=== PATIENT | male | born 1960 | race Caucasian/White ===

== ENCOUNTER 2018-04-23 01:48 | Inpatient (IN) | payer OTHER ==
[~2018-04-23] VITALS: Ht 167.6 cm; Wt 93.2 kg
--- NOTE | 2018-04-23 12:58 | Patient Discharge Instructions ---
Discharge Instructions General Discharge Information You were seen/treated for: Rectal Cancer You had these procedures: Robotic/Laparoscopic Low Anterior Resection with Ileostomy Creation Watch for these problems: Bleeding, signs of infection including fever >101, redness, swelling or unusual drainage from incisions, increased pain, nausea, vomiting, excessive ostomy output, no ostomy output, or any other problems, questions or concerns. Do not soak the wound: Yes Daily wet to dry dressings: No No bath, but you may shower: Yes Other wound care: Ostomy care: Measure and record output daily. If >1L/day call MD. If no output call MD. Diet Continue normal diet: No Recommended Diet: Low Residue Additional DIET Information: Avoid high fiber foods (ruffage) see diet handout for additional recommendations Activity Full Activity/No Limits: No Activity Self Limited: Yes Pounds, do NOT lift more than: 10 ([id number]) Activity Limited to: Weight bear as tolerated Acute Coronary Syndrome Inclusion Criteria At DC or during hospital stay patient has or had the following: ACS DIAGNOSIS No Discharge Core Measures Meds if any: Prescribed or Continued at Discharge Meds if any: NOT Prescribed or Continued at Discharge Congestive Heart Failure Inclusion Criteria At DC or during hospital stay patient has or had the following: CHF DIAGNOSIS No Discharge Core Measures Meds if any: Prescribed or Continued at Discharge Meds if any: NOT Prescribed or Continued at Discharge Cerebrovascular accident Inclusion Criteria At DC or during hospital stay patient has or had the following: CVA/TIA Diagnosis No Discharge Core Measures Meds if any: Prescribed or Continued at Discharge Meds if any: NOT Prescribed or Continued at Discharge Venous thromboembolism Inclusion Criteria VTE Diagnosis No VTE Type NONE VTE Confirmed by (Test) NONE Discharge Core Measures - Per Current guidelines, there needs to be overlap - treatment for the first 5 days of Warfarin therapy. - If discharged on Warfarin prior to 5 days of - overlap therapy, the patient will need to be - assessed for post discharge needs including - *Post discharge parental anticoagulation - *Warfarin and/or parental anticoagulation education - *Follow up date to check INR post discharge At least 5 days overlap therapy as Inpatient No Meds if any: Prescribed or Continued at Discharge Note: Overlap Therapy is Warfarin and Anticoagulant Meds if any: NOT Prescribed or Continued at Discharge
--- NOTE | 2018-04-23 13:01 | Admission Core Measures ---
Acute Coronary Syndrome (CM) ACS Core Measures Acute Coronary Syndrome Diagnosis No Congestive Heart Failure (NEW) CHF Core Measures Congestive Heart Failure Diagnosis No Cerebrovascular Accident CVA Core Measures CVA/TIA Diagnosis No Venous Thromboembolism VTE Core Tyler (View Protocol) VTE Risk Factors Surgery No Mechanical VTE Prophylaxis d/t N/A MechProphylax Ordered No VTE Pharm Prophylaxis d/t NA PharmProphylax ordered Problem List As ranked by this Provider includes Assessment & Plan 1. Rectal cancer metastasized to bone 2. S/P colectomy 3. S/P ileostomy HOME MEDS Home Med List No Known Home Medications
--- NOTE | 2018-04-23 13:11 | Surgical Discharge Summary ---
Visit Information Visit Dates Admission Date: 04/23/18 Discharge Date: 05/06/18 History of Present Illness Chief Complaint: Rectal cancer Medical History Respiratory: Lung Cancer Surgical History Pertinent Surgical History: S/P Left Lobectomy Review of Systems: as per [facility] Hospital Course Course Attending Physician: Nam Crooks Jr., DO Primary Care Physician: Bladimir MARTINEZ,Xuan Lopez Hospital Course: This is a 57 yo male who presented electively for low anterior resection and ileostomy creation. Patient underwent the aforementioned procedure without complication. He was on an ERAS protocol during his hospital stay. He had a ruiz catheter placed in the OR which remained in place until POD #2 at which point he underwent a voiding trial without difficulty. Postoperative course was complicated by postop ileus, for which he had a PICC line placed for TPN, which was weaned as diet was advanced. PICC line was removed prior to discharge. He received ostomy care and teaching during his stay. By time of discharge he was ambulating, voiding, tolerating a low residue diet and pain was well controlled with oral analgesia. Plan is for the patient to follow up with Dr. Crooks in 1-2 weeks following discharge from the hospital. For full details of his hospital course, operative report and diagnostic studies please refer to his electronic chart. Complications: Postop ileus, resolved Allergies: Coded Allergies: No Known Allergies (04/21/18) Significant Procedures: Robotic/Laparoscopic Low Anterior Resection and Ileostomy Creation Disposition Summary Disposition Principal Diagnosis: Rectal Cancer Additional Diagnosis: Postop ileus, resolved Discharge Disposition: home health services Discharge Instructions General Discharge Information Code Status: Full Code Patient's Diet: Low residue Patient's Activity: Increase as tolerated Follow-Up Instructions/Appts: With Dr. Crooks in 1-2 weeks Medications at Discharge Discharge Medications: Start taking the following new medications: Oxycodone HCl/Acetaminophen (Percocet 5-325 MG Tablet) 5 MG-325 MG TABLET 1-2 Tablet ORAL EVERY 4-6 HOURS NEEDED as needed for PAIN Qty = 20 No Refills Loperamide HCl (Imodium A-D) 2 MG TABLET 2 Milligram ORAL THREE TIMES DAILY as needed for DIARRHEA/HIGH OSTOMY OUTPUT Qty = 30 No Refills Copies To: Nam Crooks Jr., DO; Bladimir MARTINEZ,Xuan Lopez
--- NOTE | 2018-04-23 13:17 | Operative Report ---
Operative/Inv Procedure Report Surgery Date: 04/23/18 Name of Procedure: 1. Robotic low anterior resection with low colorectal anastomosis 2. Laparoscopic diverting loop ileostomy 3. Rigid sigmoidoscopy Pre-Operative Diagnosis: Rectal cancer Post-Operative Diagnosis: Rectal cancer Estimated Blood Loss: less than 50ml Surgeon/Tape Recorder Repairer: Nam Crooks Jr., DO surgical assistant certified Sherri SOLO Second server service assistant Mariana SOLO Anesthesia: general endotracheal tube, block Monitors: Per routine IV Fluids: Refer to anesthesia record Implants: None Urine Output: Refer to anesthesia record Drains: None Specimens: 1 . Rectosigmoid with tumor and tattoo 2. Stapler donor as true distal margin Complications: None Condition: Good Operative Indication: This is a 57-year-old gentleman who was diagnosed with synchronous primary lung cancer and primary rectal cancer. His rectal cancer was clinically staged with MRI as T3N positive/clinical stage III his lung cancer was addressed first and patient had thoracotomy with partial resection. Following this patient had neoadjuvant chemoradiation for his rectal cancer. He has now completely recovered from both his previous surgery and his chemotherapy and presented today for resection of his rectal cancer. Operative/Procedure Note Note: On the day before the operation the patient did a bowel prep at home including oral laxatives and oral antibiotic. Per our ERAS protocol he drinks 12 ounces of apple juice 1 hour before coming to the hospital. In the holding area he received the typical ERAS medications. He was taken to the operating room. He was placed in the supine position on the operating room table. He underwent induction of general anesthesia and placement of Tate catheter. Bilateral tap blocks were performed by the anesthesia department. He received IV antibiotics in keeping with skip protocol. He was converted to lithotomy position in Stanford stirrups with both arms tucked. The abdomen was prepped and draped in the usual fashion. Gain access to the abdominal cavity using a Veress needle technique. The Veress needle was placed in the midclavicular line subcostal on the left. The abdomen was insufflated to 50 mmHg. The ports were then placed in usual fashion. Laparoscopic explanation of the abdominal cavity was performed. The liver appeared normal. A tattoo was visible staining the peritoneal reflection on the floor of the perineal cavity. The patient was placed in Trendelenburg right side down. Patient had what appeared to be previous diverticulitis with abnormal adhesions between the sigmoid colon and the left lower quadrant. These adhesions were taken down first partly with sharp dissection partly with electrocautery. The rectosigmoid was then grasped and elevated towards the anterior abdominal wall I incised the peritoneum at the sacral promontory and entered the posterior avascular space of the rectum. I developed the space in the medial to lateral fashion until I could see the iliac vessels the left ureter and the left gonadal vessels. Next I skeletonized the inferior mesenteric vascular pedicle. The pedicle was then divided in high ligation fashion using the robotic 45 mm white load vascular stapler. The vascular pedicle was completely hemostatic. The vessels were divided just distal to the takeoff of the left colic artery. At this point I took down the white line of Toldt and the mesocolon from Gerota's fascia. At this point my attention was completely focused on the pelvic dissection. I developed the posterior avascular space of the rectum all the way down to the levators. The muscle of the levator was clearly visible. I took the lateral stalks of the rectum first on the right side than on the left side all the way down to the levator. I then focused on the anterior dissect. The tattoo was visible in the anterior rectal wall. I followed park pino until I was below the prostate anteriorly and the low the tattoo on the rectal wall. Once I was well be on the tattoo the rectum was transected. The rectum was transected in an anterior posterior fashion with robotic green 45 mm stapler. 3 staplings in total were required to complete the transection. The transected rectum was then grasped with a locking grasper. The pneumoperitoneum was let down. A 4 cm Pfannenstiel incision was made 2 fingerbreadths cephalad to the pubic symphysis. A wound protector was placed through this incision. The specimen was easily extracted through this incision. I chose my proximal site of transection on the bowel. There was evidence of diverticulitis in the mid sigmoid colon. So the transection took place about the level of the proximal transverse colon. The mesentery was ligated and divided with 2-0 Vicryl ties. The bowel wall itself was divided sharply with scalpel. The specimen was removed and placed on the back table. I chose a 28 EEA stapler for the anastomosis. A handsewn pursestring was performed with 2-0 Prolene suture. The head of the end was placed into the lumen of the bowel. The pursestring was tied snugly around the PEG of the anvil and the bowel was reduced back into the abdominal cavity. At this point I broke scrub and opened the specimen on the back table. I had excellent distal margin on the tumor. The tumor appeared to have good response to radiation and with a small ulcerated area. I scrubbed back into the field. Was placed on the wound protector. Pneumoperitoneum was re-established. The EEA sizers were passed transanally and then the EEA stapler was passed. The spike was advanced in the emergency room right mid ELBA staple line right through the staple line. The 2 ends of the stapler were laparoscopically mated. The staple was completely closed and allowed to settle for 30 seconds. The staple was armed, fired, opened and retrieved. 2 excellent donuts were present on the stapling device. The rectal donut was sent as true distal margin. The pelvis was filled with sterile saline. Rigid sigmoidoscopy was performed the anastomosis was at about 5 cm. The anastomosis was widely patent and appeared intact. There was no bubbling at the anastomotic staple line. Next an additional 5 mm port was placed in the left lower quadrant. Laparoscopically the I identified the cecum and ran the terminal ileum for about 30 cm. This is the site I chose for the loop ileostomy. A small mesenteric window was made here and a umbilical tape was placed through this window. The umbilical tape was grasped through the #3 port which was just below and to the right of the umbilicus. This was to become ileostomy site. The pneumoperitoneum was once again let down. A yering[place] of skin and soft tissue was excised around the #3 port. The fascia was exposed and divided in a cruciate fashion. The rectus muscle was then exposed was bluntly divided in the midline and then the posterior fascia was also divided in a cruciate fashion. I was able to pull the loop of ileum up through the fascial defect. Next all the ports were removed. The Pfannenstiel incision was closed first. The peritoneum was closed with a running 2-0 Vicryl suture. The fascia was closed with a running 0 PDS suture. The subcu was copiously irrigated and the skin was closed with skin felicia. All of the laparoscopic ports were closed with subcuticular 4-0 Monocryl. Skin glue then applied to all the small incision. Next we prepared to mature the stoma. The umbilical tape was exchanged for a red rubber catheter. A Ashlie-type ileostomy was then created with 3-0 Vicryl in an interrupted fashion. Red rubber catheter was then fashioned into a stoma bridge and tails were tied together with heavy nylon suture. At this point the abdomen was cleansed and dried. A small island dressing was placed over the Pfannenstiel incision. A stoma collection device was placed over the ileostomy. The patient was converted back to supine. He was extubated in the operating room and tolerated the procedure well. He was taken to the recovery area in good condition. At the end of this case all needle sponges and instruments were accounted for. Findings: Good clinical response to radiation Excellent distal margin on tumor Anastomosis appears airtight Discharge Disposition: Same Day Admissions CC: Uzair MARTINEZ,Carlos
--- NOTE | 2018-04-23 14:47 | PN- General Surgery ---
Subjective Subjective: Pt. sates he is comfortable, has no complaints. Objective Vital Signs and I&Os Alert, oriented , awake Vital signs stable. Lungs are clear Heart regular, HR in 70's. Abdomen is softly mildly distended, dressing over incision is dry. Left sided ileostomy is pink, viable with scant amounts of serosang. drainage. Tate in place with clear yellow urine Assessment/Plan Assessment/Plan 57 y o with hx of retal Ca who underwent robotic assisted LAR POD#0 on ERAS protocol. Hemodynamically stable Progressing as expected Pain well controlled Abdominal exam stable Core Measures Venous Thromboembolism VTE Risk Factors Surgery No Mechanical VTE Prophylaxis d/t N/A MechProphylax Ordered No VTE Pharm Prophylaxis d/t NA PharmProphylax ordered
[2018-04-23 15:00] VITALS: BP 118/70
[2018-04-23 22:23] VITALS: BP 132/70
[2018-04-24 06:42] VITALS: BP 118/70
--- NOTE | 2018-04-24 07:20 | PN- Student ---
See Addendum Eugenie Suh 04/24/18 0711: Subjective Subjective: Pt states he is feeling well after surgery. He has some pain and discomfort in his lower abdomen that is a 4/10. He was up and walking last night and is eager to do so again. He has not passed gas or had a bowel movement yet. He has a good appetite. He denies any nausea, vomiting, CP, SOB, difficulty breathing, headache or dizziness. Objective Objective: Vitals: See EMR General: Middle aged male, lying in bed comfortably, ruiz in place with good urine output, NAD. Cardio: S1 and S2. No murmurs, rubs, gallops. Regular rate and rhythm. Pulmonary. Adequate breath sounds appreciated with no wheezes, rhonchi or rales. Adomen: Dressing in suprapubic region is clean, dry and intact. Ileostomy bag is in place with brown contents noted without any evidence of blood. Laproscopic incisions are intact and clean. Abdomen is soft and normoactive bowel sounds are heard. No rebound tenderness or guarding. Slightly tender to palpation. Extremities: Calves are soft and non-tender bilaterally. 5/5 dorsi and plantar flexion. Gross sensation intact and equal bilaterally in the feet. Results Results: Microbiology 04/23 0801 URINE ROUT: Urine Culture - RECD Assessment/Plan Assessment: A: 57 year old male POD#1 s/p LAR with loop ileostomy for resection of primary rectal cancer. Pt tolerated the procedure well and post-operative pain is well controlled. Plan: P: Continue to monitor and tx pain. ERAS protocol continued. Enocurage amulation with PT. Continue 1L nasal canula. Continue with ALPs for DVT prophylaxis and Heparin subq. Continue home medications. IVF running. Continue to monitor urine output. Ruiz to be removed on POD#2. Will discuss with surgical PAs and attendin. Jai Odell 04/24/18 6920: Assessment/Plan Plan: Seen and eval with PA-S. Agree with above. Tolerating clears w/ n/v, belched twice, reports gas sensation and bilious drainage from his ileostomy, leaked twiced overnight. Ambulated oob last night and using IS. On evam, afebrile, vss, mildly distended, ileostomy pink and viable with bilious drainage, bs present, ttp incisionally, lungs clear, alps in place, no edema/calf pain. POD 1 s/p LAR w/ diverting ileostomy, recovering well. Cont eras, d/c IVF advance to fulls, cont entereg, wean O2, encourage ambulation/is, d/c ruiz tomorrow. Wound and nutrition c/s. D/w Dr. Crooks
--- NOTE | 2018-04-24 07:54 | PN- General Surgery ---
Surgical Brief Attending Note Brief Attending Note: Patient seen and examined Clinical data reviewed and patient discussed with PA staff Patient looks quite well postop day 1 from robotic low anterior resection with diverting loop ileostomy Advance diet per the ERAS protocol. Full was this morning and possible low fiber tomorrow Patient needs to keep Tate catheter for 1 more day as he had been and is at risk for urinary retention Remove Tate catheter first thing tomorrow morning and voiding trial Ostomy therapy/nursing coming to see patient today Patient possibly to discharge tomorrow will need home nursing for assistance with his stoma
[2018-04-24 09:36] LABS: ABSOLUTE BASOPHIL COUNT 0 /CUMM (0.0-0.2); ABSOLUTE EOSINOPHIL COUNT 0 /CUMM (0.0-0.7); ABSOLUTE GRANULOCYTE CT 9.1 /CUMM (1.4-6.5); ABSOLUTE LYMPH COUNT 0.6 /CUMM (1.2-3.4); BASOPHIL % 0 % (0.0-2.0); EOSINOPHIL % 0 % (0-5); GRANULOCYTE % 85.3 % (42.2-75.2); HEMATOCRIT 40.5 % (42-52); MEAN CORPUSCULAR HGB 30.6 PG (27.0-31.0); MEAN CORPUSCULAR HGB CONC 33.8 G/DL (33.0-37.0); MEAN CORPUSCULAR VOLUME 90.3 FL (80.0-94.0); MEAN PLATELET VOLUME 8.1 FL (7.4-10.4); PLATELET COUNT 228 /CUMM (130-400); RBC DISTRIBUTION WIDTH 15.8 % (11.5-14.5); RED BLOOD CELL CT 4.49 /CUMM (4.70-6.10); WHITE BLOOD CELL COUNT 10.6 /CUMM (4.8-10.8)
[2018-04-24 13:41] VITALS: BP 150/60
[2018-04-24 23:08] VITALS: BP 124/62
[2018-04-25 06:44] VITALS: BP 128/90
--- NOTE | 2018-04-25 06:45 | PN- General Surgery ---
See Addendum Subjective Subjective: pod#2 s/p lar several episodes of large volume yellow liquid vomit currently on liquid diet denies cp, sob, abdomen is distended and is belching appears very uncomfortable but complaints are only abdominal Objective Vital Signs and I&Os Vital Signs Date Time Temp Pulse Resp B/P B/P Pulse O2 O2 Flow FiO2 Mean Ox Delivery Rate 04/25 0000 94 Nasal 1.0L Cannula 04/24 2308 99.0 76 20 124/62 94 04/24 1600 Room Air 04/24 1341 98.5 65 20 150/60 97 Room Air 04/24 0800 94 Room Air 04/24 0642 97.4 63 20 118/70 96 Intake & Output 04/25 0804/25 0000 04/24 1600 04/24 0800 04/24 0000 04/23 1600 Intake Total 111 495 8713 1200 660 Output Total 438 243 2069 1400 2650 Balance -450 -450 -100 -200 -1989 Intake, IV 75 600 300 Intake, Oral 065 163 8217 600 360 Output, Stool 550 750 375 Output, Urine 1000 1400 2650 Patient 209 lb Weight Weight Reported by Patient Measurement Method Physical Exam: cv: rrr lungs: clear abd: distended, mild tender to palp llq active bs stoma pink, ostomy with large amount of brown liquid stool ext: warm, distal cms intact Assessment/Plan Assessment/Plan pod#2 s/p robitic lar large amount of large liquid yelllow vomitus plan cont npo started a few hours ago resume ivf mv abd xray oob ambulate iv tylenol Core Measures Venous Thromboembolism VTE Risk Factors Surgery No Mechanical VTE Prophylaxis d/t N/A MechProphylax Ordered No VTE Pharm Prophylaxis d/t NA PharmProphylax ordered
[2018-04-25 09:06] LABS: ABSOLUTE BASOPHIL COUNT 0 /CUMM (0.0-0.2); ABSOLUTE EOSINOPHIL COUNT 0 /CUMM (0.0-0.7); ABSOLUTE GRANULOCYTE CT 11.5 /CUMM (1.4-6.5); ABSOLUTE LYMPH COUNT 0.4 /CUMM (1.2-3.4); ABSOLUTE MONOCYTE COUNT 0.7 /CUMM (0.10-0.60); BASOPHIL % 0 % (0.0-2.0); EOSINOPHIL % 0.1 % (0-5); GRANULOCYTE % 91.1 % (42.2-75.2); MEAN CORPUSCULAR HGB 30.6 PG (27.0-31.0); MEAN CORPUSCULAR HGB CONC 34.2 G/DL (33.0-37.0); MEAN CORPUSCULAR VOLUME 89.6 FL (80.0-94.0); MEAN PLATELET VOLUME 8.4 FL (7.4-10.4); PLATELET COUNT 251 /CUMM (130-400); RBC DISTRIBUTION WIDTH 15.9 % (11.5-14.5); RED BLOOD CELL CT 5.25 /CUMM (4.70-6.10); WHITE BLOOD CELL COUNT 12.6 /CUMM (4.8-10.8)
--- NOTE | 2018-04-25 10:29 | RADIOLOGY REPORT ---
EXAMINATION: XR ABDOMEN MULTIPLE VIEWS CLINICAL INDICATION: Abdominal distention, vomiting. Presumptive diagnosis of ileus versus obstruction. Status post low anterior resection. COMPARISON: None TECHNIQUE: 2 views of the abdomen performed on 4 images. FINDINGS: Postsurgical suture line is seen in the lower pelvis and a right lower quadrant ostomy is seen, consistent with patient's history of low anterior resection. Midline, horizontally oriented, lower pelvic cutaneous felicia are seen. There is mild gaseous distention of small bowel loops in the abdomen with multiple air-fluid levels seen on upright view, most consistent with ileus in the immediate postop setting. Small amount of free air is also seen under the diaphragm, consistent with postoperative state. The included lung bases and bony structures are grossly unremarkable. IMPRESSION: Above findings are consistent with patient's recent postoperative state with small amounts of free air seen in the abdomen and mild gaseous distention of multiple small bowel loops seen, suggestive of a postoperative ileus. Close clinical correlation is requested. Follow-up films can be obtained as clinically appropriate. This critical result was discussed with Dr. Sarthak Colón 04/25/2018, 10:22 AM and it was ascertained that the content and urgency of this report was understood at the time of direct communication.
[2018-04-25 11:38] LABS: HEMATOCRIT 47.1 % (42-52)
[2018-04-25 13:39] VITALS: BP 118/60
[2018-04-25 21:33] VITALS: BP 120/70
[2018-04-26 07:09] VITALS: BP 124/78
--- NOTE | 2018-04-26 09:21 | PN- General Surgery ---
See Addendum Subjective Subjective: Patient feels less bloated today and states that he is belching and hiccuping less frequently. Denies nauesa and vomitting. Has been voiding without difficulty. Notes occasional crampy discomfort in abdomen, notes copious amounts of fluid in ileostomy bag, also notes increasing amounts of air in bag today. Objective Vital Signs and I&Os Vital Signs Date Time Temp Pulse Resp B/P B/P Pulse O2 O2 Flow FiO2 Mean Ox Delivery Rate 04/26 709 97.8 79 18 124/78 94 04/25 2133 98.0 81 20 120/70 94 04/25 1339 98.5 83 20 118/60 95 Room Air Intake & Output 04/26 1600 04/26 0804/26 0000 04/25 1600 04/25 0000 Intake Total 800 900 800 100 300 Output Total 1200 943 679 6321 750 Balance -400 450 425 -1220 -450 Intake, IV 800 900 800 0 Intake, Oral 0 100 300 Output, Stool 900 004 352 5700 750 Output, Urine 300 150 175 170 Physical Exam: General: Alert and oriented x3, no acute distress Cardiac: RRR, s1s2 Pulm: CTA bilaterally Abd: Soft, minimal distension, no tympanny, some ralph-incisional tenderness. Ostomy functional, stoma viable, dark fluid in large quantities noted in bag, air noted. Extremities: Moves all extremities, distal sensaiton grossly intact. Skin warm and well pefused. Bialteral calves soft and non-tender. Assessment/Plan Assessment/Plan This is a 57 year old male, POD 3 s/p robotic LAR with loop ileostomy, post op ileus on pod 2, diet regressed to npo -Ileus appears to be resolving slowly, although still belching, consider abd xray to assess progress prior to diet advance -Recommend continue npo this am, iv fluid hydration -Fluid output high in ostomy bag, consider cholestyramine if no improvement with resolution of ileus Will discuss plan of care with Dr. Steen Core Measures Venous Thromboembolism VTE Risk Factors Surgery No Mechanical VTE Prophylaxis d/t N/A MechProphylax Ordered No VTE Pharm Prophylaxis d/t NA PharmProphylax ordered
[2018-04-26 14:13] VITALS: BP 100/70
[2018-04-26 22:07] VITALS: BP 118/82
[2018-04-27 06:54] VITALS: BP 122/60
--- NOTE | 2018-04-27 07:45 | PN- General Surgery ---
See Addendum Subjective Subjective: Patient overall feeling better. Less distention. No nausea. No vomiting. No fever no flulike illness. His appetite is coming back. Objective Vital Signs and I&Os Vital Signs Date Time Temp Pulse Resp B/P B/P Pulse O2 O2 Flow FiO2 Mean Ox Delivery Rate 04/27 0654 97.8 62 20 122/60 6 Room Air 04/26 2207 98.0 75 20 118/82 95 04/26 1413 98.2 77 18 100/70 96 Room Air Intake & Output 04/27 0000 04/26 1600 04/26 0000 04/25 1600 Intake Total 400 940 800 900 800 Output Total 400 1400 1200 450 675 Balance 0 -460 -400 450 125 Intake, IV 400 820 800 900 800 Intake, Oral 0 120 0 Output, Stool 400 1200 900 300 500 Output, Urine 200 300 150 175 Patient 209 lb Weight Physical Exam: Well-developed well-nourished no apparent distress. HEENT: Atraumatic, extraocular motion intact Neck: Supple, no lymphadenopathy Respiratory: No respiratory distress Abdomen: Softly distended, mild tympany, dressing sites clean dry and intact with small amount of serosanguineous drainage right lower quadrant dressing. Ostomy is functioning. Stoma is pink and viable. There is small amount of light brown liquid in the bag. Positive bowel sounds. Extremities: No edema, no calf pain Neuro: Alert and oriented x3 Psych: Mood affect normal, normal memory normal judgment. Skin: Warm and dry, no rash on exposed skin Results Last 48 Hours of Labs: Laboratory Tests 04/27 04/25 0624 0805 Chemistry Sodium (137 - 145 mmol/L) Pending 137 Potassium (3.5 - 5.1 mmol/L) Pending 4.8 Chloride (98 - 107 mmol/L) Pending 102 Carbon Dioxide (22 - 30 mmol/L) Pending 26 Anion Gap (5 - 16) Pending 9 BUN (9 - 20 mg/dL) Pending 15 Creatinine (0.7 - 1.2 mg/dL) Pending 0.8 Estimated GFR (>60 ml/min) > 60 BUN/Creatinine Ratio (7 - 25 %) Pending 18.8 Hematology CBC w Diff Pending NO MAN DIFF REQ WBC (4.8 - 10.8 /CUMM) Pending 12.6 H RBC (4.70 - 6.10 /CUMM) Pending 5.25 Hgb (14.0 - 18.0 G/DL) Pending 16.1 Hct (42 - 52 %) Pending 47.1 MCV (80.0 - 94.0 FL) Pending 89.6 MCH (27.0 - 31.0 PG) Pending 30.6 MCHC (33.0 - 37.0 G/DL) Pending 34.2 RDW (11.5 - 14.5 %) Pending 15.9 H Plt Count (130 - 400 /CUMM) Pending 251 MPV (7.4 - 10.4 FL) Pending 8.4 Gran % (42.2 - 75.2 %) 91.1 H Lymphocytes % (20.5 - 51.1 %) 3.2 L Monocytes % (1.7 - 9.3 %) 5.6 Eosinophils % (0 - 5 %) 0.1 Basophils % (0.0 - 2.0 %) 0 Absolute Granulocytes (1.4 - 6.5 /CUMM) 11.5 H Absolute Lymphocytes (1.2 - 3.4 /CUMM) 0.4 L Absolute Monocytes (0.10 - 0.60 /CUMM) 0.7 H Absolute Eosinophils (0.0 - 0.7 /CUMM) 0 Absolute Basophils (0.0 - 0.2 /CUMM) 0 Assessment/Plan Assessment/Plan This is a 57 year old male, POD 4 s/p robotic LAR with loop ileostomy, post op ileus on pod 2, diet regressed to npo Follow-up Multiview x-ray this morning, eval for resolving ileus Continue Imodium for high ostomy output Continue n.p.o., ice chips okay, IV fluids Follow a.m. labs Encourage ambulation Core Measures Venous Thromboembolism VTE Risk Factors Surgery No Mechanical VTE Prophylaxis d/t N/A MechProphylax Ordered No VTE Pharm Prophylaxis d/t NA PharmProphylax ordered
[2018-04-27 07:52] LABS: ABSOLUTE BASOPHIL COUNT 0 /CUMM (0.0-0.2); ABSOLUTE EOSINOPHIL COUNT 0.1 /CUMM (0.0-0.7); ABSOLUTE GRANULOCYTE CT 5.5 /CUMM (1.4-6.5); ABSOLUTE LYMPH COUNT 0.8 /CUMM (1.2-3.4); ABSOLUTE MONOCYTE COUNT 0.7 /CUMM (0.10-0.60); BASOPHIL % 0.3 % (0.0-2.0); EOSINOPHIL % 1.4 % (0-5); GRANULOCYTE % 77.4 % (42.2-75.2); HEMATOCRIT 44.2 % (42-52); MEAN CORPUSCULAR HGB 30.8 PG (27.0-31.0); MEAN CORPUSCULAR HGB CONC 34.3 G/DL (33.0-37.0); MEAN CORPUSCULAR VOLUME 89.9 FL (80.0-94.0); MEAN PLATELET VOLUME 7.8 FL (7.4-10.4); PLATELET COUNT 258 /CUMM (130-400); RBC DISTRIBUTION WIDTH 15.3 % (11.5-14.5); RED BLOOD CELL CT 4.92 /CUMM (4.70-6.10); WHITE BLOOD CELL COUNT 7.1 /CUMM (4.8-10.8)
--- NOTE | 2018-04-27 09:12 | RADIOLOGY REPORT ---
EXAMINATION: XR ABDOMEN WITH PA CHEST CLINICAL INDICATION: Compare to prior radiographs. Presumptive diagnosis of ileus. COMPARISON: Two-view abdomen dated 04/25/2018. TECHNIQUE: Supine and AP sitting views of the abdomen were performed. FINDINGS: There is persistent abnormal distention of multiple small bowel loops in the abdomen with associated air-fluid levels and relative paucity of bowel gas in the rectosigmoid colon. Chain link sutures and cutaneous felicia in the lower pelvis and ostomy in the right lower quadrant are again noted. Previously seen free air is no longer identified. Minimal linear atelectatic changes are seen in the left lung base. IMPRESSION: No significant change in degree of small bowel distention with associated air-fluid levels, consistent with ongoing postoperative ileus.
[2018-04-27 14:46] VITALS: BP 104/64
[2018-04-27 21:48] VITALS: BP 122/80
[2018-04-28 06:33] VITALS: BP 128/72
--- NOTE | 2018-04-28 07:06 | PN- Student ---
Subjective Subjective: Pt is feeling achey this morning and still feels very gassy. Has noticed that his ilesotomy has continued to put out alot and has noticed air entering the bag. Has not had difficulty urinating. Has walked around but has felt increasingly tired when doing so. Has had a clear diet but has not been tolerating it due to abdominal cramping. Denies any CP, SOB, difficulty breathing, headache, dizziness, nausea, vomiting, numbness of tingling. Objective Objective: Vitals: See EMR General: middle aged male, lying in bed, NAD. Cardio: S1 and S2 heard. Regular rate and rhythm. No murmurs, rubs or gallops. Pulm: Breath sounds appreciated with no evidence of wheezes, rhonchi or rales. Abdomen: Dressing is clean and intact. Site of ileostomy is pink and clean without evidence of leakage. Bag is half filled with brown liquid and air noted in the bag. Abdomen is slightly distended and soft. Normoactive bowel sounds were appreciated. Slightly tender to light palpation. Extremities: Bilateral calves soft and non-tender. Bilateral upper and lower extremity motor and sensation are grossly intact and equal. Results Results: Laboratory Tests 04/27/18 0624: Anion Gap 11, Estimated GFR > 60, BUN/Creatinine Ratio 22.2, CBC w Diff NO MAN DIFF REQ, RBC 4.92, MCV 89.9, MCH 30.8, MCHC 34.3, RDW 15.3 H, MPV 7.8, Gran % 77.4 H, Lymphocytes % 10.7 L, Monocytes % 10.2 H, Eosinophils % 1.4, Basophils % 0.3, Absolute Granulocytes 5.5, Absolute Lymphocytes 0.8 L, Absolute Monocytes 0.7 H, Absolute Eosinophils 0.1, Absolute Basophils 0 04/25/18 0805: Anion Gap 9, Estimated GFR > 60, BUN/Creatinine Ratio 18.8, CBC w Diff NO MAN DIFF REQ, RBC 5.25, MCV 89.6, MCH 30.6, MCHC 34.2, RDW 15.9 H, MPV 8.4, Gran % 91.1 H, Lymphocytes % 3.2 L, Monocytes % 5.6, Eosinophils % 0.1, Basophils % 0 , Absolute Granulocytes 11.5 H, Absolute Lymphocytes 0.4 L, Absolute Monocytes 0.7 H, Absolute Eosinophils 0, Absolute Basophils 0 Assessment/Plan Assessment: Pt is a 57 year old male POD #5 s/p LAR with loop ileostomy for primary rectal cancer whose hospital course has been complicated by post-operative ileus. Plan: Pt is on clear diet now, continue to advance diet as tolerated. Immodium in use for high output ileostomy. Will continue to assess output. Encourage ambulation and incentive spirometry use. ALPs device and SubQ Hep for DVT prophylaxis. Follow up labs and Xray for evaluation of ileus. Will discuss with surgical PAs and attending.
--- NOTE | 2018-04-28 08:00 | PN- General Surgery ---
Subjective Subjective: pod# 5 s/p lap lar w/loop ileostomy sitting at bedside this am noticibly uncomfortable which he states is due to "full stomach, and belching" denies cp, sob, no vomiting resumed clears yesterday lunch he states ostomy output has decreased, immodium started yesterday Objective Vital Signs and I&Os Vital Signs Date Time Temp Pulse Resp B/P B/P Pulse O2 O2 Flow FiO2 Mean Ox Delivery Rate 04/28 0633 98.4 85 16 128/72 98 Room Air 04/27 2148 98.6 86 20 122/80 96 04/27 1446 98.0 84 18 104/64 96 Intake & Output 04/28 0000 04/27 1600 04/27 0000 04/26 1600 Intake Total 1000 1150 920 800 400 940 Output Total 600 1150 1000 838 209 4650 Balance 400 0 -80 200 0 -460 Intake, IV 300 800 800 800 400 820 Intake, Oral 700 350 120 0 0 120 Output, Stool 300 650 600 910 614 3808 Output, Urine 300 500 400 200 200 Patient 209 lb Weight Physical Exam: cv: rrr lungs: clear, good air movement abd: softly distended, +bs stoma red, beefy liquid stool in ostomy ext: warm, cms intact SERVICE DATE: 04/27/18 EXAM TYPE: RAD - XRY-ABD MULTI VIEW W/PA CHEST EXAMINATION: XR ABDOMEN WITH PA CHEST CLINICAL INDICATION: Compare to prior radiographs. Presumptive diagnosis of ileus. COMPARISON: Two-view abdomen dated 04/25/2018. TECHNIQUE: Supine and AP sitting views of the abdomen were performed. FINDINGS: There is persistent abnormal distention of multiple small bowel loops in the abdomen with associated air-fluid levels and relative paucity of bowel gas in the rectosigmoid colon. Chain link sutures and cutaneous felicia in the lower pelvis and ostomy in the right lower quadrant are again noted. Previously seen free air is no longer identified. Minimal linear atelectatic changes are seen in the left lung base. IMPRESSION: No significant change in degree of small bowel distention with associated air-fluid levels, consistent with ongoing postoperative ileus. DICTATED BY: Jace MARTINEZ,Ariana Gary DATE/TIME DICTATED:04/27/18905 ENGINEERING TECHNICIAN PARKING:ROSIE DATE/TIME TRANSCRIBED:04/27/18905 Assessment/Plan Assessment/Plan s/p lar w/loop ileostomy decreased ostomy ouput with addition of immodium persistent nausea with clears abd xray for 04/27 demonstrates ongoing post op ileus plan hold course for now may add cholestyramine for high output cont oob/ambulate clear diet as tolerated will d/w attending Core Measures Venous Thromboembolism VTE Risk Factors Surgery No Mechanical VTE Prophylaxis d/t N/A MechProphylax Ordered No VTE Pharm Prophylaxis d/t NA PharmProphylax ordered
--- NOTE | 2018-04-28 09:11 | PN- General Surgery ---
Surgical Brief Attending Note Brief Attending Note: Patient states still with poor appetite and anorexia Afebrile and stable vital signs Still with high stoma output Abdomen soft but mildly distended and tympanitic X-rays reviewed-not uncommon to see small bowel distention proximal to ileostomy , there should be a paucity of gas at the rectosigmoid as the patient has a diverting stoma. That would be normal finding in this patient Impression Still with some bowel dysmotility and high ileostomy output Advance to full liquids Increase Imoodium to 2 tabletes TID Ambulate Start low rate IV fluids until better oral intake-75 mL's per hour75 ml /hr
[2018-04-28 15:00] VITALS: BP 100/80
[2018-04-28 22:16] VITALS: BP 124/82
[2018-04-29 06:22] VITALS: BP 124/76
--- NOTE | 2018-04-29 08:10 | PN- Student ---
Eugenie Suh 04/29/18 5857: Subjective Subjective: Pt is still complaining of abdominal cramping and discomfort. Continues to have gas pain with reported belching. Has not had much of an appetite but is tolerating small amounts of his full liquid diet. Complaining of some nausea. Has ambulated to and from the bathroom without difficulty. No difficulty urinating. Has noted decreased output in his ostomy bag. Objective Objective: Vitals: See EMR General: Middle aged man, lying in bed, NAD. Cardio: S1 and S2 heard. No murmurs rubs or gallops. regular rate and rhythm. Pulm: Breath sounds appreciated. No wheezes, rhonchi or rales. Abdomen: Softly distended. Incisions are clean, dry and intact. Mild ecchymosis in the RLQ. Ostomy site is pink, edematous, viable and functioning with alessio in place. Small amount of clear brown liquid in the bag. Normoactive bowel sounds. Midly tender to palpation diffusely. Extremities: Calves are soft and non-tender bilaterally. DP and PT pulses palpable. Gross sensation and motor function intact and equal bilaterally. Assessment/Plan Assessment: 57 y.o male POD#6 s/p robotic assisted LAR with diverting loop ileostomy secondary to primaray rectal cancer. Pt's hospital course has been complicated by a post-operative ileus, which has since resolved, and a high output ileostomy , which appears to be improving with use of immodium. Pt continues to have minimal appetite but is tolerating full liquid diet. Post-operative pain has been moderately controlled. Plan: Continue to monitor and treat pain. IV pain relief d/c, continue with oral pain medication prn. Diet advanced to full liquids yesterday. Continue with full liquid diet today and advance as tolerated. Maintain IV fluid at 75 ml/hr. Continue with immodium TID for high output ileostomy. Check electrolytes and creatinine. Maintain strict I's and O's. Encourage ambulation and incentive spirometry use. ALPs and SubQ hep for DVT ppx. Continue home medications. Will discuss with attending and surgical PA staff. Mayte Tate 04/29/18 9066: Objective Objective: Output: ostomy: 500/24hr, watery brown, some gas in bag uo: 500 overnight, voiding spont Results Results: Laboratory Tests 04/29/18 0625: Sodium Pending, Potassium Pending, Chloride Pending, Carbon Dioxide Pending, Anion Gap Pending, BUN Pending, Creatinine Pending, BUN/Creatinine Ratio Pending Assessment/Plan Plan: cont ivf, cont full liquids. poor appetitie, some nausea, no vomiting. fu lytes. cont immodium as ordered, strict i&os. will dw attending
--- NOTE | 2018-04-29 08:44 | PN- General Surgery ---
Surgical Brief Attending Note Brief Attending Note: Patient states he feels slightly better today still crampy and low-level nausea Stoma still working output has significantly decreased Remains afebrile with stable vital signs Abdomen is softly distended Stoma is somewhat dusky but viable with liquid green stool Impression: Still suboptimal bowel function Plan: Imodium decreased from 4 mg 3 times daily to 2 mg 3 times daily Continue IV fluids Continue to full liquid diet Encourage ambulation If patient does not feel significantly better by tomorrow will obtain CT scan abdomen
[2018-04-29 15:37] VITALS: BP 122/84
[2018-04-29 21:15] VITALS: BP 156/90
[2018-04-30 06:40] VITALS: BP 122/78
--- NOTE | 2018-04-30 07:15 | PN- Student ---
Eugenie bai 04/30/18 0706: Subjective Subjective: Pt is complaining of nausea and vomiting. He had one episode of vomitus last night that he described as green/yellow and says it looked like bile. He felt relief after vomiting. He felt nauseous again this morning and has been dry heaving. He continues to have a crampy abominal pain diffusely. Still is not tolerativng his full liquid diet and is only able to sip on things thorughout the day. There was minimal output in his ostomy bag yesterday. He denies any CP, SOB, dizziness, DAMIAN, or difficulty urinating. Objective Objective: Vitals: See EMR Fluid In: 2445ml Out:600 ml Net: +1845 General: Middle aged man, sitting up on the side of the bed, dry heaving over the trash can. Warm to the touch and slightly diaphoretic. Cardio: Regular rate and rhythm. S1 and S2 appreciated with no murmurs rubs or gallops. Pulm: Breath sounds auscultated with no wheezes, rhonchi or rales. Abdomen: Softly distended. Mildly tender to palpation. Normoactive bowel sounds heard. Ostomy site is pink and viable. Very minimal brown liquid noted in the ostomy bag. Extremities: calves are soft and non-tender bilaterally. gross motor and sensory function intact bilaterally and equal. Results Results: Laboratory Tests 04/29/18 0625: Anion Gap 10, Estimated GFR > 60, BUN/Creatinine Ratio 24.4 Assessment/Plan Assessment: Pt is a 57 yo male POD #7 s/p robotic LAR with diverting loop ilestomy for primary rectal cancer. Hospital course copmlicated by post-operative ileus, which has resolved, high ouptut ileostomy, which has since resolved and now evolving nausea and low out ileostomy. Plan: Pt scheduled for CT scan this morning. Continue to monitor and treat pain. Tx nausea prn. Full liquid diet as tolerated. Continue with IVF until liquid diet is better tolerated. Hep SQ and ALPs as tolerated. Encourage ambulation and incentive spirometry use. Monitor ostomy output and maintain strict I's and O's. Will discuss with attending and sugrical PAs. Jai Odell 04/30/18 0796: Assessment/Plan Plan: Seen and evaluated with PA-S. Reports feeling worse this morning with 2 epsidoes of bilious vomiting last night and this morning and one of his incision leaking since yesterday. On exam, appears uncomfortable, abdomen is moderately distended , stoma is dusky with scant liquid stool, lateral incision with dressing saturated with serosang drainage, redressed with pressure dressing. Overall, patient worsening with nausea, vomiting, abdominal distention and decreased ostomy output concerned for ileus vs sbo. Immodium d/c last night. Keep NPO on IVF, place NGT, CT A/P with oral contrast via NGT today, antiemetics prn. Follow up labs. D/w Dr. Crooks.
[2018-04-30 08:32] LABS: ABSOLUTE BASOPHIL COUNT 0 /CUMM (0.0-0.2); ABSOLUTE EOSINOPHIL COUNT 0 /CUMM (0.0-0.7); ABSOLUTE GRANULOCYTE CT 5.7 /CUMM (1.4-6.5); ABSOLUTE LYMPH COUNT 0.5 /CUMM (1.2-3.4); BASOPHIL % 0.1 % (0.0-2.0); EOSINOPHIL % 0.3 % (0-5); GRANULOCYTE % 79.1 % (42.2-75.2); HEMATOCRIT 43.7 % (42-52); MEAN CORPUSCULAR HGB 30.7 PG (27.0-31.0); MEAN CORPUSCULAR VOLUME 90.3 FL (80.0-94.0); MEAN PLATELET VOLUME 7.9 FL (7.4-10.4); PLATELET COUNT 267 /CUMM (130-400); RBC DISTRIBUTION WIDTH 15.7 % (11.5-14.5); RED BLOOD CELL CT 4.84 /CUMM (4.70-6.10); WHITE BLOOD CELL COUNT 7.2 /CUMM (4.8-10.8)
--- NOTE | 2018-04-30 09:20 | PN- General Surgery ---
See Addendum Subjective Subjective: Still with very little air/liquid in ostomy bag Pt vomiting this morning - bilious liquid, while attempting to drink contrast. NGT placement attempted but aborted due to extreme gagging Discussed with patient need for ngt and he agrees to attempt again 18F placed via right nares - pt has a strong gag reflex but was able to tolerate placement Objective Vital Signs and I&Os Vital Signs Date Time Temp Pulse Resp B/P B/P Pulse O2 O2 Flow FiO2 Mean Ox Delivery Rate 04/30 640 97.7 72 20 122/78 95 Room Air 04/29 2115 98.2 76 16 156/90 95 04/29 1537 97.4 84 18 122/84 96 Intake & Output 04/30 1600 04/30 0800 04/30 0000 04/29 1600 04/29 0000 Intake Total 225 273 431 6623 500 Output Total 500 200 600 Balance -275 400 845 400 500 Intake, IV 225 600 525 600 300 Intake, Oral 320 400 200 Output, Stool 50 50 100 Output, Urine 450 150 500 Physical Exam: vss, afebrile General: alert and oriented times three Chest: clear anteriorly bilaterally, RRR Abd: softly distended, hypoactive bs Ostomy: very small amount of bilious liquid in bag, dusky but looks okay bedside basin with same green bilious material in bag Ext: warm, no edema NGT placed - small amount of bilious liquid and contrast returned to canister, placed to lcws Assessment/Plan Assessment/Plan 57yo male now pod 7 s/p robotic LAR with loop ileostomy, diagnosed with rectal and lung cancer, decreased ostomy output post op after initially having a high output immodium discontinued npo/ivf CT with contrast ordered for evaluation NGT placed just now - stat xr pending for placement check, then can give contrast via ngt will discuss with Dr Daksha GILL CT heparin sq for dvt ppx Core Measures Venous Thromboembolism VTE Risk Factors Surgery No Mechanical VTE Prophylaxis d/t N/A MechProphylax Ordered No VTE Pharm Prophylaxis d/t NA PharmProphylax ordered
--- NOTE | 2018-04-30 10:29 | RADIOLOGY REPORT ---
EXAMINATION: XR PORTABLE CHEST CLINICAL INFORMATION: Postoperative vomiting, requiring NG tube. Check NG tube placement. COMPARISON: Chest x-ray dated 04/27/2018. TECHNIQUE: 2 portable views of the chest and 5 portable films of the upper abdomen were performed. FINDINGS: An enteric tube is seen with tip projecting over the gastric body. There is prominent gaseous distention of multiple small bowel loops in the abdomen. Right lower quadrant ileostomy is seen. Lower pelvic bowel sutures and overlying cutaneous felicia are seen. No definite free air is appreciated, though evaluation on supine imaging is limited in this regard. The cardiomediastinal silhouette is enlarged, unchanged. Low lung volumes are seen with mild atelectatic changes in the lower lungs bilaterally. Bony structures are grossly unremarkable. IMPRESSION: 1. Enteric tube tip projects over the gastric body. 2. Marked gaseous distention of multiple small bowel loops in the abdomen, slightly progressive when compared to 04/27/2018. Findings are most consistent with a postoperative ileus. Clinical correlation and follow-up films are recommended as clinically indicated. 3. Low lung volumes with bibasilar subsegmental atelectasis.
--- NOTE | 2018-04-30 14:21 | CT SCAN REPORT ---
EXAMINATION: CT ABDOMEN AND PELVIS WITH CONTRAST CLINICAL INFORMATION: 57-year-old male with abdominal distention and cessation of ostomy output. COMPARISON: None TECHNIQUE: Multidetector volumetric imaging was performed from the superior aspect of the liver through the pubic symphysis following administration of oral contrast. Sagittal and coronal reformatted images were obtained on the technologist's workstation. DLP: 638.1 mGy-cm FINDINGS: LOWER CHEST: There are mild atelectatic changes present at the left lung base. There is no evidence of a pleural or pericardial effusion. LIVER, GALLBLADDER, AND BILIARY TREE: The liver is normal in size, shape, and attenuation. No focal hepatic lesion or biliary ductal dilatation is present. The gallbladder is unremarkable with no evidence of radiopaque gallstones, gallbladder wall thickening, or obvious pericholecystic inflammatory changes. PANCREAS: No pancreatic mass, ductal ectasia, inflammatory changes are seen. SPLEEN: The spleen is not enlarged. ADRENAL GLANDS: The adrenal glands are normal in configuration bilaterally. KIDNEYS AND URETERS: The kidneys are normal in size, shape, and attenuation. There is a 5 mm nonobstructing calculus in the lower pole right kidney. No hydronephrosis, hydroureter, or perinephric fluid collection. There is bilateral perinephric stranding. BLADDER: The urinary bladder is decompressed. GASTROINTESTINAL TRACT: A nasogastric tube is seen traversing the esophagus and in the lumen of the stomach which is decompressed. The entire colon is decompressed. There is a small amount of free intraperitoneal gas in the right upper quadrant. There appears to be a right lower quadrant ileostomy. The bowel leading to the ostomy is decompressed to approximately the upper mid pelvis. There is moderate distention of the jejunum which measures up to 4 cm in diameter. Multiple metallic anastomotic sutures are seen at the rectosigmoid junction. ABDOMINAL WALL: A transverse staple line is seen in the suprapubic area. Subcutaneous gas is seen in the left anterior abdominal wall above the level the umbilicus. LYMPH NODES: No mesenteric, retroperitoneal, pelvic, or inguinal adenopathy is identified. VASCULAR: Unremarkable. PELVIC VISCERA: No pelvic mass, focal collection, or free fluid is identified. OSSEOUS STRUCTURES: Unremarkable. IMPRESSION: 1. Ileostomy seen in the right lower quadrant with a decompressed colon. The caliber change in the jejunum is substantially upstream from the ileostomy suggesting that there is not obstruction at the level of the stoma. No focal obstructing mass or volvulus is verified. 2. A small amount of free intraperitoneal air probably postoperative in etiology.
[2018-04-30 14:26] VITALS: BP 130/70
[2018-04-30 21:49] VITALS: BP 142/80
[2018-05-01 05:44] VITALS: BP 130/82
--- NOTE | 2018-05-01 07:26 | PN- Student ---
Eugenie Suh 05/01/18 0709: Subjective Subjective: Pt states that he is feeling better after the NGT placement. He feels less cramping in his abdomen and less pain overall. He is complaining of a sore throat and has begun to use chloraseptic spray for relief. Says he emptied his ostomy bag once yesterday and there was small amount of brown liquid. He has not had trouble urinating. He only got out of bed yesterday to go to the bathroom. Expressed concerns regarding TPN and PICC line placement due to not wanting to prolong his hospital stay any more. He has no CP, SOB, difficulty breathing, headache or dizziness. Objective Objective: Vitals: See EMR In: 1287.5 ml Out: 1400 ml Net: -112.5 ml General: Middle aged man, lying in bed, NGT tube in place, NAD. A&Ox3. Cardio: regular rate and rhythm. s1 and s2 heard with no murmurs, rubs or gallops. Pulm: clear breath sounds anteriorly with no wheezes, rhonchi or rales. Abdomen: Soft and less distended than yesterday. Dressing clean dry and intact over the right abdomen. Incisions clean, dry and intact with no erythema or draingage noted. Hypoactive bowel sounds. Mildly tender to palpation. Extremities: Calves are soft and non-tender bilaterally. Gross motor and sensation are intact and equal bilaterally in the lower extremities. Results Results: Laboratory Tests 04/30/18 0623: Anion Gap 10, Estimated GFR > 60, BUN/Creatinine Ratio 28.6 H, CBC w Diff NO MAN DIFF REQ, RBC 4.84, MCV 90.3, MCH 30.7, MCHC 34.0, RDW 15.7 H, MPV 7.9, Gran % 79.1 H, Lymphocytes % 6.4 L, Monocytes % 14.1 H, Eosinophils % 0.3, Basophils % 0.1, Absolute Granulocytes 5.7, Absolute Lymphocytes 0.5 L, Absolute Monocytes 1.0 H, Absolute Eosinophils 0, Absolute Basophils 0 04/29/18 0625: Anion Gap 10, Estimated GFR > 60, BUN/Creatinine Ratio 24.4 Assessment/Plan Assessment: Pt is a 57 year old male POD#8 s/p robotic LAR with diverting loop ilestomy for primary rectal cancer. Hospital course has been complicated by high output ilestomy followed by low output ileostomy and small bowel obstruction. Plan: NG tube in place. NPO still with IVF running. Keep strict I's and O's. Possible PICC line for TPN today for nutrition. Monitor pain and control as needed. Abdominal Xray this morning. Hep subQ and Alps for DVT prophylaxis. Encourage ambulation and incentive spirometry use. Jai Odell 05/01/18 0940: Assessment/Plan Plan: Seen and evaluated with PA-S. Agree with above. Patient reports improvement since NGT placement. C/o throat discomfort. On exam, soft, less distended, + bs, ileostomy with minimal bilious stool and gas in gas, 50 cc last shift lateral incision with decreased serous drainage, redressed with gauze/abd/tape. POD 8 s/ p robotic LAR with loop ileostomy complicated by ileus vs sbo who requires parental nutrition. PICC line will be placed today for TPN. Consent obtained. Cont bowel rest, IVF, NGT for decompression, IV anlagesics, lozenges/ chloroseptic spray for dicomfort. AXR today to reassess bowel dilatation. Will d /w Dr. Crooks
--- NOTE | 2018-05-01 12:47 | RADIOLOGY REPORT ---
EXAMINATION: XR ABDOMEN MULTIPLE VIEWS CLINICAL INDICATION: Nausea. Small bowel obstruction. COMPARISON: CT images of the abdomen, 04/30/2018. Abdomen radiographs, 04/27/2018. TECHNIQUE: 2 views of the abdomen. FINDINGS: Persistent small bowel obstruction with multiple air-fluid levels of the distended bowel. Small bowel measures up to approximately 4 cm diameter. The degree of bowel dilatation has worsened compared to 04/27/2018 but is similar compared to 04/30/2018. The CT images of 04/30/2018 show apparent small bowel transition just proximal to the site of the ileostomy. No pneumoperitoneum. The tip of the nasogastric tube is in the mid gastric body. Transversely oriented skin felicia of the lower abdominal wall, and anastomotic felicia of the rectum, status post low anterior resection. IMPRESSION: Small bowel obstruction appears worse compared to 04/27/2018, but remain similar in appearance compared to 04/30/2018. No pneumoperitoneum.
--- NOTE | 2018-05-01 15:11 | RADIOLOGY REPORT ---
EXAMINATION:\H\ \N\XR CHEST CLINICAL INFORMATION: 57-year-old male with abdominal distention. Status post PICC line placement. COMPARISON: Portable chest radiograph done on 04/30/2018. TECHNIQUE: Frontal view of the chest was obtained. FINDINGS: Interval placement of a right-sided PICC line is seen with its tip seen projecting at the cavoatrial junction. Previously documented enteric tube is reidentified with its tip seen projecting at the expected location of the stomach. Both lung choi are clear. The cardiac mediastinal silhouette is within normal limits. Multiple distended bowel loops are reidentified within the visualized upper abdomen, unchanged since 04/30/2018. IMPRESSION: 1. The tip of the newly placed right-sided PICC line is seen projecting at the cavoatrial junction. 2. The tip of the enteric tube is seen projecting at the expected location of the stomach. 3. Multiple distended small bowel loops are reidentified, appear unchanged since 04/30/2018.
--- NOTE | 2018-05-01 15:49 | PN- General Surgery ---
Surgical Brief Attending Note Brief Attending Note: Patient feels much better Nasal gastric tube still with large output Stoma starting to make liquid stool again Abdomen much softer nontender PICC line has been placed Plan: Keep n.p.o. with nasogastric tube for now Start IV nutrition Ambulate
[2018-05-01 22:32] VITALS: BP 130/60
[2018-05-02 06:20] VITALS: BP 118/76
--- NOTE | 2018-05-02 08:31 | PN- Student ---
Eugenie Suh 05/02/18 0824: Subjective Subjective: Pt is feeling better after the NG tube placement and the start of the TPN. Says he feels less cramping and pain overall. Still complaining of a sore throat but the lozenges and chloraseptic spray are helping. He ambulated yesterday without any difficulty. Noted some stool from his rectum yd while urinating. Has not had any issues urinating. Dark brown liquid noted in wall suction unit. Denies any SOB, CP, difficulty breathing, calf pain, headache or dizziness. Objective Objective: Vitals: See EMR In: 1855.8 ml Out: 1974 Net: -199.2 General: Middle aged man, lying in bed, NGT in place, NAD. Cardio: S1 and S2 heard. Regular rate and rhythm. No murmurs rubs or gallops. Pulm: Clear breath sounds auscultated with no wheezes rhonchi or rales. Abdomen: Softly distended but decreased since yd. Ostomy bag in place with green.brown liquid noted in the bag. Ostomy site is clean and dry and appears viable. Incisions are intact with no erythema, edema, warmth or discharge. Normoactive bowel sounds auscultated. Slightly tender to palpation. Extremities: Calves are soft and non-tender bilaterally. Gross motor and sensation is intact and equal in upper and lower extremities bilaterally. Results Results: Laboratory Tests 05/02/18 0600: Sodium Pending, Potassium Pending, Chloride Pending, Carbon Dioxide Pending, Anion Gap Pending, BUN Pending, Creatinine Pending, BUN/Creatinine Ratio Pending , Magnesium Pending 05/01/18 1000: AST Cancelled, ALT Cancelled, Alkaline Phosphatase Cancelled, Albumin Cancelled 05/01/18 0810: Anion Gap 10, Estimated GFR > 60, BUN/Creatinine Ratio 27.5 H, Magnesium 2.4 H 05/01/18 0700: Sodium Cancelled, Potassium Cancelled, Chloride Cancelled, Carbon Dioxide Cancelled, Anion Gap Cancelled, BUN Cancelled, Creatinine Cancelled, BUN/ Creatinine Ratio Cancelled, Glucose Cancelled, Calcium Cancelled, Phosphorus Cancelled, Magnesium Cancelled, Total Bilirubin Cancelled, AST Cancelled, ALT Cancelled, Alkaline Phosphatase Cancelled, Albumin Cancelled, Prealbumin Cancelled, Triglycerides Cancelled, Cholesterol Cancelled 04/30/18 0623: Anion Gap 10, Estimated GFR > 60, BUN/Creatinine Ratio 28.6 H, CBC w Diff NO MAN DIFF REQ, RBC 4.84, MCV 90.3, MCH 30.7, MCHC 34.0, RDW 15.7 H, MPV 7.9, Gran % 79.1 H, Lymphocytes % 6.4 L, Monocytes % 14.1 H, Eosinophils % 0.3, Basophils % 0.1, Absolute Granulocytes 5.7, Absolute Lymphocytes 0.5 L, Absolute Monocytes 1.0 H, Absolute Eosinophils 0, Absolute Basophils 0 Assessment/Plan Assessment: 57 y/o male POD#9 s/p robotic LAR with diverting loop ilesotomy for resection of primary rectal cancer. Hospital course complicated by ileus, followed by high output ilestomy and then a small bowel obstruction. Small bowel obstruction is improving with placement of NGT and patient is clinically improving. Plan: NG tube to remain in place. NPO still with IVF running. Keep strict I's and O's. PICC line in place with TPN running. Follow up labs since TPN has begun. Monitor pain and control as needed. Hep subQ and Alps for DVT prophylaxis. Encourage ambulation and incentive spirometry use Chloraseptic spray and lozenges for sore throat. Will discuss with Dr Crooks and surgical PA staff. Jessica Levine 05/02/18 1118: Assessment/Plan Assessment: Pt seen and examined. Agree with above PA student note. He feels much better today. Nausea is improved, he feels stronger, spirits are up. His abdominal tenderness is much improved and tolerable. On exam his abdomen is softly distended, good bs, ostomy looks good, brown/green liquid in bag FU labs TPN Continue NGT for now - 350cc overnight bilious discussed with Dr Crooks
--- NOTE | 2018-05-02 12:03 | PN- General Surgery ---
Surgical Brief Attending Note Brief Attending Note: Patient now clinically progressing He reports that he feels much better Stoma output returning and NG tube drainage decreasing Plan is as follows: If nasogastric output decreases even further over the next 24 hours we will do clamping trial tomorrow morning. Otherwise, keep n.p.o. with NG tube for now Continue TPN
[2018-05-02 15:26] VITALS: BP 130/78
[2018-05-02 22:20] VITALS: BP 132/80
[2018-05-03 06:20] VITALS: BP 110/78
[2018-05-03 09:32] LABS: ABSOLUTE BASOPHIL COUNT 0 /CUMM (0.0-0.2); ABSOLUTE EOSINOPHIL COUNT 0 /CUMM (0.0-0.7); ABSOLUTE GRANULOCYTE CT 6.1 /CUMM (1.4-6.5); ABSOLUTE LYMPH COUNT 0.8 /CUMM (1.2-3.4); ABSOLUTE MONOCYTE COUNT 1.1 /CUMM (0.10-0.60); BASOPHIL % 0.2 % (0.0-2.0); EOSINOPHIL % 0.4 % (0-5); GRANULOCYTE % 76.5 % (42.2-75.2); HEMATOCRIT 44.2 % (42-52); MEAN CORPUSCULAR HGB 30.5 PG (27.0-31.0); MEAN CORPUSCULAR HGB CONC 33.5 G/DL (33.0-37.0); MEAN CORPUSCULAR VOLUME 91.2 FL (80.0-94.0); MEAN PLATELET VOLUME 8.2 FL (7.4-10.4); PLATELET COUNT 315 /CUMM (130-400); RBC DISTRIBUTION WIDTH 15.2 % (11.5-14.5); RED BLOOD CELL CT 4.85 /CUMM (4.70-6.10)
--- NOTE | 2018-05-03 09:46 | PN- General Surgery ---
See Addendum Subjective Subjective: He reports feeling better. Taking ice chips. Feels less distended. Reports return of appetite. Eager to trial ng tube clamping with possible removal later today, so that he can try clears. Ongoing tpn progression. Objective Vital Signs and I&Os Vital Signs Date Time Temp Pulse Resp B/P B/P Pulse O2 O2 Flow FiO2 Mean Ox Delivery Rate 05/03 620 98.2 98 18 110/78 95 Room Air 05/02 2220 97.5 99 19 132/80 95 Room Air 05/02 1526 97.8 75 20 130/78 94 Intake & Output 05/03 1600 05/03 0800 05/03 0000 05/02 1600 05/02 0800 05/02 0000 Intake Total 608.0 228.0 682.0 480.8 495.8 Output Total 650 1500 1475 1050 950 Balance -42.0 -1272.0 -793.0 -569.2 -454.2 Intake, IV 375 Intake, Lipid 108.0 40.5 41.0 80.8 Intake, Oral 0 Intake, Other 600 Intake, 500 187.5 41 400 120.8 TPN/PPN Output, 200 300 350 350 Gastric Drainage Output, Stool 250 950 450 300 400 Output, Urine 865 450 5349 400 200 Patient 209 lb Weight Physical Exam: General - alert & oriented x 3. comfortable. no acute distress. Lungs - clear Cardiac - s1s2. reg. Abdomen - soft. bowel sounds appreciated. ileostomy moist and pink, with red rubber catheter in place, and some liquid stool noted in the bag. low transverse incision well approximated with felicia. no erythema or exudates. ng tube drained 200 mls drainage overnight (he reports he is taking a lot of ice chips). Extremities - warm bilaterally. no c/c/e. calves soft and nontender b/l. Current Medications: Current Medications Sig/Nirmala Start time Last Medication Dose Route Stop Time Status Admin Benzocaine/Menthol 1 HYUN Q2P PRN 05/01 0945 AC 05/02 PO 1002 Celecoxib 200 MG BID 04/23 1246 AC 05/01 PO 1122 Diphenhydramine HCl 50 MG Q6P PRN 04/23 1300 AC IV Fat Emulsion 325 ML 1900 05/02 1900 AC 05/02 Intravenous IV 05/03 1859 1934 Fat Emulsion 250 ML Q24H 05/01 1900 DC 05/01 Intravenous IV 05/02 Gabapentin 200 MG Q8 04/23 1400 AC 05/01 PO 2116 Heparin Sodium 5,000 UNIT Q8 04/23 1400 AC 05/03 (Porcine) SC 0601 Metoclopramide HCl 10 MG Q6P PRN 04/23 1300 AC 04/29 IV 1345 Morphine Sulfate 2 MG Q4P PRN 05/01 0015 AC 05/03 IV 0030 Morphine Sulfate 4 MG Q4P PRN 05/01 0015 AC 05/02 IV 0324 Ondansetron HCl 4 MG Q6P PRN 04/23 1300 AC 04/28 IV 0826 Oxycodone HCl 5 MG Q4-6 PRN PRN 04/23 1300 AC 04/25 PO 0324 Oxycodone HCl 10 MG Q4-6 PRN PRN 04/23 1300 AC 04/28 PO 2035 Pantoprazole Sodium 40 MG DAILY 04/23 1249 AC 05/02 IV 0959 Phenol 2 SPRAY Q2P PRN 05/01 0545 AC 05/01 EXT 0619 Simethicone 80 MG Q8P PRN 04/23 1300 AC 04/28 PO 0553 Total Parenteral 1 UNIT 1900 05/02 190 AC 05/02 Nutrition IV 05/03 1859 193 Total Parenteral 1 UNIT ONE 05/01 1900 DC 05/01 Nutrition IV 05/02 Tramadol HCl 50 MG Q6 PRN 04/29 1145 AC PO Tramadol HCl 100 MG Q6P PRN 04/29 1145 AC PO Results Last 48 Hours of Labs: Laboratory Tests 05/03 05/02 05/01 0609 0600 UNK Chemistry Sodium (137 - 145 mmol/L) 137 137 Potassium (3.5 - 5.1 mmol/L) 3.9 4.4 Chloride (98 - 107 mmol/L) 98 97 L Carbon Dioxide (22 - 30 mmol/L) 28 27 Anion Gap (5 - 16) 12 13 BUN (9 - 20 mg/dL) 26 H 26 H Creatinine (0.7 - 1.2 mg/dL) 0.7 0.7 Estimated GFR (>60 ml/min) > 60 > 60 BUN/Creatinine Ratio (7 - 25 %) 37.1 H 37.1 H Phosphorus (2.5 - 4.5 mg/dL) 5.6 H Magnesium (1.6 - 2.3 mg/dL) 2.6 H 2.7 H AST Cancelled ALT Cancelled Alkaline Phosphatase Cancelled Albumin Cancelled Prealbumin (17.6 - 36.0 mg/dL) 21.0 Hematology CBC w Diff NO MAN DIFF REQ WBC (4.8 - 10.8 /CUMM) 8.0 RBC (4.70 - 6.10 /CUMM) 4.85 Hgb (14.0 - 18.0 G/DL) 14.8 Hct (42 - 52 %) 44.2 MCV (80.0 - 94.0 FL) 91.2 MCH (27.0 - 31.0 PG) 30.5 MCHC (33.0 - 37.0 G/DL) 33.5 RDW (11.5 - 14.5 %) 15.2 H Plt Count (130 - 400 /CUMM) 315 MPV (7.4 - 10.4 FL) 8.2 Gran % (42.2 - 75.2 %) 76.5 H Lymphocytes % (20.5 - 51.1 %) 9.4 L Monocytes % (1.7 - 9.3 %) 13.5 H Eosinophils % (0 - 5 %) 0.4 Basophils % (0.0 - 2.0 %) 0.2 Absolute Granulocytes (1.4 - 6.5 /CUMM) 6.1 Absolute Lymphocytes (1.2 - 3.4 /CUMM) 0.8 L Absolute Monocytes (0.10 - 0.60 /CUMM) 1.1 H Absolute Eosinophils (0.0 - 0.7 /CUMM) 0 Absolute Basophils (0.0 - 0.2 /CUMM) 0 Assessment/Plan Assessment/Plan This 57 year old male is over a week s/p robotic LAR with loop ileostomy, with resolving ileus clamping trial with residual checks q4 possible ng tube removal later today f/u electrolytes continue TPN for now oob/ambulation encouraged hep sc - dvt ppx ileostomy care will d/w Core Measures Venous Thromboembolism VTE Risk Factors Surgery No Mechanical VTE Prophylaxis d/t N/A MechProphylax Ordered No VTE Pharm Prophylaxis d/t NA PharmProphylax ordered
[2018-05-03 14:03] VITALS: BP 120/80
[2018-05-03 22:05] VITALS: BP 122/80
[2018-05-04 06:20] VITALS: BP 118/66
--- NOTE | 2018-05-04 07:31 | PN- Student ---
Subjective Subjective: Pt states that he is feling much better overall. The abdominal cramping is now at a minimum. He is tolerating a clear liquid diet and his appetite has returned. He has had no nausea or vomiting. He noted increased output at his ostomy site. The contents have jonatan green/brown liquid. He has had no issues urinating. He has walked around without difficulty. He denies any CP, SOB, difficulty breathing, headache or dizziness. Objective Objective: Vitals: See EMR In: 1861 ml Out: 2305ml Net: -443.5 Stool out: 475 ml Gen: Middle aed man, lying in bed, NAD, PICC line in place, TPN running. Cardio: Regular rate and rhythm. S1 and S2 appreciated. No murmurs, rubs or gallops. Pulm: Breath sounds auscultated w. no wheezes, rhonchi or rales. Abdomen: Softly distended, normoactive bowel sounds. Stoma is pink and viable with red rubber catheter in place. Small amount of brown/green liquid and air in the bag. Suprapubic incision intact with felicia in place and no excessive erythema, warmth or drainage. All other incisions intact with glue and no evidence of erythema, warmth or discharge. Non-tender to palpation in all quadrants. Ext: Calves are soft and non-tender. Gross sensation and motor function intact and equal bilaterally in upper and lower extremities. Results Results: Laboratory Tests 05/04/18 0630: Sodium Pending, Potassium Pending, Chloride Pending, Carbon Dioxide Pending, Anion Gap Pending, BUN Pending, Creatinine Pending, BUN/Creatinine Ratio Pending , Glucose Pending, Phosphorus Pending, Magnesium Pending, CBC w Diff Pending, WBC Pending, RBC Pending, Hgb Pending, Hct Pending, MCV Pending, MCH Pending, MCHC Pending, RDW Pending, Plt Count Pending, MPV Pending 05/03/18 0609: Anion Gap 12, Estimated GFR > 60, BUN/Creatinine Ratio 37.1 H, Phosphorus 5.6 H, Magnesium 2.6 H, Prealbumin 21.0, CBC w Diff NO MAN DIFF REQ, RBC 4.85, MCV 91.2, MCH 30.5, MCHC 33.5, RDW 15.2 H, MPV 8.2, Gran % 76.5 H, Lymphocytes % 9.4 L, Monocytes % 13.5 H, Eosinophils % 0.4, Basophils % 0.2, Absolute Granulocytes 6.1, Absolute Lymphocytes 0.8 L, Absolute Monocytes 1.1 H, Absolute Eosinophils 0, Absolute Basophils 0 05/02/18 0600: Anion Gap 13, Estimated GFR > 60, BUN/Creatinine Ratio 37.1 H, Magnesium 2.7 H 05/01/18 1000: AST Cancelled, ALT Cancelled, Alkaline Phosphatase Cancelled, Albumin Cancelled 05/01/18 0810: Anion Gap 10, Estimated GFR > 60, BUN/Creatinine Ratio 27.5 H, Magnesium 2.4 H Assessment/Plan Assessment: 57 y/o POD#11 s/p robotic LAR with diverting loop ileostomy for primary rectal cancer. Post-operative ileus has since resolved after NG tube placement and bowel rest. Pt is tolerating TPN well and NG tube has been removed without difficulty. Post-operative pain is well controlled. Plan: Continue to monitor and treat pain. Pt is tolerating clear liquid diet, consider advancing. Continue TPN for now. May begin immodium for increased ostomy output. Hep SQ and ALPs for DVT ppx. Encourage ambulation and incentive spirometry use. Continue w home meds. Follow up w. labs Will discuss with Dr Crooks and Ellen.
[2018-05-04 08:13] LABS: ABSOLUTE BASOPHIL COUNT 0 /CUMM (0.0-0.2); ABSOLUTE EOSINOPHIL COUNT 0.1 /CUMM (0.0-0.7); ABSOLUTE GRANULOCYTE CT 8.6 /CUMM (1.4-6.5); ABSOLUTE LYMPH COUNT 0.6 /CUMM (1.2-3.4); ABSOLUTE MONOCYTE COUNT 0.9 /CUMM (0.10-0.60); BASOPHIL % 0.1 % (0.0-2.0); EOSINOPHIL % 0.8 % (0-5); HEMATOCRIT 44.6 % (42-52); MEAN CORPUSCULAR HGB 30.6 PG (27.0-31.0); MEAN CORPUSCULAR HGB CONC 33.9 G/DL (33.0-37.0); MEAN CORPUSCULAR VOLUME 90.5 FL (80.0-94.0); MEAN PLATELET VOLUME 8.1 FL (7.4-10.4); PLATELET COUNT 308 /CUMM (130-400); RBC DISTRIBUTION WIDTH 14.9 % (11.5-14.5); RED BLOOD CELL CT 4.93 /CUMM (4.70-6.10); WHITE BLOOD CELL COUNT 10.2 /CUMM (4.8-10.8)
--- NOTE | 2018-05-04 08:59 | PN- General Surgery ---
Surgical Brief Attending Note Brief Attending Note: Nasogastric tube removed yesterday after successful clamping trial Patient tolerated clears Stoma function Plan: Continue TPN full-strength for today Start full liquid diet Start low dose Imodium 1 tablet 3 times a day
[2018-05-04 14:31] VITALS: BP 108/70
[2018-05-04 22:07] VITALS: BP 100/70
[2018-05-05 06:50] VITALS: BP 90/60
--- NOTE | 2018-05-05 07:24 | PN- Student ---
Subjective Subjective: Pt is feeling better rahul yd. Tolerated full liquid diet last night without any n /v. Noted decreased but sufficient output in his bag yd after receiving immodium. Ambulated and urinated without dificulty. Noted air in the bag and passage of gas. No CP, SOB, weakness, dizziness or DAMIAN. Objective Objective: Vitals: See EMR Gen: Middle aed man, lying in bed, NAD, PICC line in place, TPN running. Cardio: Regular rate and rhythm. S1 and S2 appreciated. No murmurs, rubs or gallops. Pulm: Breath sounds auscultated w. no wheezes, rhonchi or rales. Abdomen: Soft, non-distended normoactive bowel sounds. Stoma is pink and viable with red rubber catheter in place. Moderate amount of brown/green liquid and air in the bag. Suprapubic incision intact with felicia in place and no excessive erythema, warmth or drainage. All other incisions intact with glue and no evidence of erythema, warmth or discharge. Non-tender to palpation in all quadrants. Ext: Calves are soft and non-tender. Gross sensation and motor function intact and equal bilaterally in upper and lower extremities. Results Results: Laboratory Tests 05/05/18 0630: Sodium Pending, Potassium Pending, Chloride Pending, Carbon Dioxide Pending, Anion Gap Pending, BUN Pending, Creatinine Pending, BUN/Creatinine Ratio Pending , Glucose Pending, Phosphorus Pending, Magnesium Pending, CBC w Diff Pending, WBC Pending, RBC Pending, Hgb Pending, Hct Pending, MCV Pending, MCH Pending, MCHC Pending, RDW Pending, Plt Count Pending, MPV Pending 05/04/18 0630: Anion Gap 13, Estimated GFR > 60, BUN/Creatinine Ratio 38.6 H, Glucose 90, Phosphorus 4.8 H, Magnesium 2.4 H, CBC w Diff NO MAN DIFF REQ, RBC 4.93, MCV 90.5, MCH 30.6, MCHC 33.9, RDW 14.9 H, MPV 8.1, Gran % 84.0 H, Lymphocytes % 5.9 L, Monocytes % 9.2, Eosinophils % 0.8, Basophils % 0.1, Absolute Granulocytes 8.6 H, Absolute Lymphocytes 0.6 L, Absolute Monocytes 0.9 H, Absolute Eosinophils 0.1, Absolute Basophils 0 05/03/18 0609: Anion Gap 12, Estimated GFR > 60, BUN/Creatinine Ratio 37.1 H, Phosphorus 5.6 H, Magnesium 2.6 H, Prealbumin 21.0, CBC w Diff NO MAN DIFF REQ, RBC 4.85, MCV 91.2, MCH 30.5, MCHC 33.5, RDW 15.2 H, MPV 8.2, Gran % 76.5 H, Lymphocytes % 9.4 L, Monocytes % 13.5 H, Eosinophils % 0.4, Basophils % 0.2, Absolute Granulocytes 6.1, Absolute Lymphocytes 0.8 L, Absolute Monocytes 1.1 H, Absolute Eosinophils 0, Absolute Basophils 0 Assessment/Plan Assessment: Pt is a 57 y/o POD#12 s/p robotic LAR with diverting loop ileostomy for primary rectal cancer. Post-operative ileus has since resolved after NG tube placement and bowel rest. Pt is tolerating TPN well and NG tube has been removed without difficulty. Post-operative pain is well controlled and bowels are functioning. Plan: Continue to monitor and treat pain. Pt is tolerating full liquid diet, consider advancing. Continue TPN for now. Continue with immodium 1 table TID. Hep SQ and ALPs for DVT ppx. Encourage ambulation and incentive spirometry use. Continue w home meds. Will discuss with Dr Crooks and PAs.
--- NOTE | 2018-05-05 07:58 | PN- General Surgery ---
Surgical Brief Attending Note Brief Attending Note: Patient subjectively feels well Tolerated full liquid diet and stoma continues to function Plan: Decrease TPN to half rate and wean to off today Advanced to low fiber diet Continue Imodium 1 tablet 3 times a day Please remove skin felicia and Place Steri-Strips Anticipate DC home tomorrow-will need home nursing for assistance with stoma
[2018-05-05 08:20] LABS: ABSOLUTE BASOPHIL COUNT 0 /CUMM (0.0-0.2); ABSOLUTE EOSINOPHIL COUNT 0.1 /CUMM (0.0-0.7); ABSOLUTE GRANULOCYTE CT 7.3 /CUMM (1.4-6.5); ABSOLUTE LYMPH COUNT 0.8 /CUMM (1.2-3.4); ABSOLUTE MONOCYTE COUNT 0.9 /CUMM (0.10-0.60); BASOPHIL % 0.3 % (0.0-2.0); EOSINOPHIL % 1.2 % (0-5); GRANULOCYTE % 79.8 % (42.2-75.2); HEMATOCRIT 42.3 % (42-52); MEAN CORPUSCULAR HGB 30.8 PG (27.0-31.0); MEAN CORPUSCULAR HGB CONC 34.2 G/DL (33.0-37.0); MEAN CORPUSCULAR VOLUME 89.9 FL (80.0-94.0); MEAN PLATELET VOLUME 7.8 FL (7.4-10.4); PLATELET COUNT 309 /CUMM (130-400); RBC DISTRIBUTION WIDTH 14.5 % (11.5-14.5); WHITE BLOOD CELL COUNT 9.2 /CUMM (4.8-10.8)
[2018-05-05 21:57] VITALS: BP 98/60
[2018-05-06 06:29] VITALS: BP 116/74
--- NOTE | 2018-05-06 07:20 | PN- General Surgery ---
See Addendum Subjective Subjective: Patient reports incisional pain, felicia removed yesterday. Tolerated low fiber diet last night without nausea or vomiting, weaned off TPN. Reports stool from his ostomy, Candida to educate him on ostomy teaching today. Denies chest pain, sob or difficulty breathing. Offers no other complaints. Eager to go home today. Objective Vital Signs and I&Os Vital Signs Date Time Temp Pulse Resp B/P B/P Pulse O2 O2 Flow FiO2 Mean Ox Delivery Rate 05/06 629 98.5 71 18 116/74 95 Room Air 05/06 0000 Room Air 05/05 2157 98.2 75 20 98/60 96 Room Air Intake & Output 05/06 0805/06 0000 05/05 1600 05/05 0000 05/04 1600 Intake Total 995 505 8604.1 1247.2 1989. 777.20 Output Total 750 300 600 475 Balance -466 916 3022.1 647.2 302.20 Intake, IV 50 20 10 Intake, Lipid 83.5 133.6 200.4 133.6 Intake, Oral 600 240 800 480 840 0 Intake, 633.6 633.6 950.40 633.60 TPN/PPN Number 2 Bowel Movements Output, Stool 500 300 600 475 Output, Urine 250 Patient 205 lb Weight Weight Bed scale Measurement Method Physical Exam: Gen - resting comfortably in bed in nad Cardiac - S1S2 noted Lungs - CTAB Abd - soft, nondistended, pfannesteil incision with steri strips in place, lap incisions healing well with no sign of infection or draiage, stoma red and patent with formed and liquid stool in the bag, appropriately tender ralph- incisionally, no rebound or guarding Ext - no edema or calf pain B/L Current Medications: Current Medications Sig/Nirmala Start time Last Medication Dose Route Stop Time Status Admin Benzocaine/Menthol 1 HYUN Q2P PRN 05/01 0945 AC 05/02 PO 1002 Celecoxib 200 MG BID 04/23 1246 AC 05/05 PO 2117 Diphenhydramine HCl 50 MG Q6P PRN 04/23 1300 AC IV Fat Emulsion 400 ML Q24H 05/04 1900 DC 05/04 Intravenous IV 05/05 Gabapentin 200 MG Q8 04/23 1400 AC 05/06 PO 0605 Heparin Sodium 5,000 UNIT Q8 04/23 1400 AC 05/06 (Porcine) SC 0605 Loperamide HCl 2 MG TID 05/04 2100 AC 05/04 PO 2137 Metoclopramide HCl 10 MG Q6P PRN 04/23 1300 AC 04/29 IV 1345 Morphine Sulfate 2 MG Q4P PRN 05/01 0015 AC 05/03 IV 0030 Morphine Sulfate 4 MG Q4P PRN 05/01 0015 AC 05/02 IV 0324 Ondansetron HCl 4 MG Q6P PRN 04/23 1300 AC 04/28 IV 0826 Oxycodone HCl 5 MG Q4-6 PRN PRN 04/23 1300 AC 05/05 PO 2118 Oxycodone HCl 10 MG Q4-6 PRN PRN 04/23 1300 AC 04/28 PO 2035 Pantoprazole Sodium 40 MG DAILY 04/23 1249 AC 05/05 IV 0926 Phenol 2 SPRAY Q2P PRN 05/01 0545 AC 05/01 EXT 0619 Simethicone 80 MG Q8P PRN 04/23 1300 AC 04/28 PO 0553 Total Parenteral 1 UNIT ONE 05/04 190 DC 05/04 Nutrition IV 05/05 1852014 Tramadol HCl 50 MG Q6 PRN 04/29 1145 AC 05/06 PO 0216 Tramadol HCl 100 MG Q6P PRN 04/29 1145 AC PO Results Last 48 Hours of Labs: Laboratory Tests 05/06 05/05 0600 0630 Chemistry Sodium (137 - 145 mmol/L) Pending 134 L Potassium (3.5 - 5.1 mmol/L) Pending 4.4 Chloride (98 - 107 mmol/L) Pending 96 L Carbon Dioxide (22 - 30 mmol/L) Pending 26 Anion Gap (5 - 16) Pending 12 BUN (9 - 20 mg/dL) Pending 24 H Creatinine (0.7 - 1.2 mg/dL) Pending 0.7 Estimated GFR (>60 ml/min) > 60 BUN/Creatinine Ratio (7 - 25 %) Pending 34.3 H Glucose (65 - 99 mg/dL) 85 Phosphorus (2.5 - 4.5 mg/dL) Pending 4.6 H Magnesium (1.6 - 2.3 mg/dL) Pending 2.2 Hematology CBC w Diff Pending NO MAN DIFF REQ WBC (4.8 - 10.8 /CUMM) Pending 9.2 RBC (4.70 - 6.10 /CUMM) Pending 4.70 Hgb (14.0 - 18.0 G/DL) Pending 14.5 Hct (42 - 52 %) Pending 42.3 MCV (80.0 - 94.0 FL) Pending 89.9 MCH (27.0 - 31.0 PG) Pending 30.8 MCHC (33.0 - 37.0 G/DL) Pending 34.2 RDW (11.5 - 14.5 %) Pending 14.5 Plt Count (130 - 400 /CUMM) Pending 309 MPV (7.4 - 10.4 FL) Pending 7.8 Gran % (42.2 - 75.2 %) 79.8 H Lymphocytes % (20.5 - 51.1 %) 8.5 L Monocytes % (1.7 - 9.3 %) 10.2 H Eosinophils % (0 - 5 %) 1.2 Basophils % (0.0 - 2.0 %) 0.3 Absolute Granulocytes (1.4 - 6.5 /CUMM) 7.3 H Absolute Lymphocytes (1.2 - 3.4 /CUMM) 0.8 L Absolute Monocytes (0.10 - 0.60 /CUMM) 0.9 H Absolute Eosinophils (0.0 - 0.7 /CUMM) 0.1 Absolute Basophils (0.0 - 0.2 /CUMM) 0 Assessment/Plan Assessment/Plan 57 M POD 13 s/p robotic LAR with loop ileostomy for rectal cancer, hosptial course complicated by ileus s/p PICC line for TPN, now resolved, off TPN tolerating low residue diet and stable for discharge Cont lrd Pain regimen prn Cont ostomy teaching Immodium tid DVT ppx - hsq, ambulate Encourage IS D/c PICC line F/u am labs Rx for Immodium and Percocet Will d/w Dr. Crooks Core Measures Venous Thromboembolism VTE Risk Factors Surgery No Mechanical VTE Prophylaxis d/t N/A MechProphylax Ordered No VTE Pharm Prophylaxis d/t NA PharmProphylax ordered
[2018-05-06] MEDS ORDERED: PERCOCET 5-3251 EACH PO (07:32)
[2018-05-06] MEDS ORDERED: IMODIUM A-D2 M1 PO (07:32)
[2018-05-06 07:47] LABS: ABSOLUTE BASOPHIL COUNT 0 /CUMM (0.0-0.2); ABSOLUTE EOSINOPHIL COUNT 0.1 /CUMM (0.0-0.7); ABSOLUTE GRANULOCYTE CT 7.1 /CUMM (1.4-6.5); ABSOLUTE LYMPH COUNT 0.9 /CUMM (1.2-3.4); ABSOLUTE MONOCYTE COUNT 0.9 /CUMM (0.10-0.60); BASOPHIL % 0.1 % (0.0-2.0); EOSINOPHIL % 1.1 % (0-5); GRANULOCYTE % 78.6 % (42.2-75.2); MEAN CORPUSCULAR HGB 30.6 PG (27.0-31.0); MEAN CORPUSCULAR HGB CONC 33.9 G/DL (33.0-37.0); MEAN CORPUSCULAR VOLUME 90.4 FL (80.0-94.0); MEAN PLATELET VOLUME 7.6 FL (7.4-10.4); PLATELET COUNT 341 /CUMM (130-400); RBC DISTRIBUTION WIDTH 14.6 % (11.5-14.5); RED BLOOD CELL CT 4.76 /CUMM (4.70-6.10)
[2018-05-06 14:51] VITALS: BP 122/80
== END 2018-05-06 17:55 | disposition home health service (06) | DRG 330 ==
LOC: SDA 01:48 → ENRESERV 13:54 → ENTRNSPT 14:33 → EDTRNSPTSTS 14:46 → EDTRNSPT 14:46 → 2NA 14:56 → CMPTRNSPT 15:04 → ENPENDDIS 05-06 07:56 → ENTRNSPT 05-06 17:34 → CMPTRNSPT 05-06 17:45 → 2NA 05-06 17:55
PROVIDERS: Nurse Practitioner; Physician Assistant; Physician Assistant Surgical
PROC: 3E0T3BZ Introduction of Anesthetic Agent into Peripheral Nerves and Plexi, Percutaneous Approach (ICD-10-PCS; principal; 2018-04-23)
PROC: 8E0W0CZ Robotic Assisted Procedure of Trunk Region, Open Approach (ICD-10-PCS; principal; 2018-04-23)
PROC: 0DJD8ZZ Inspection of Lower Intestinal Tract, Via Natural or Artificial Opening Endoscopic (ICD-10-PCS; principal; 2018-04-23)
PROC: 0DTP0ZZ Resection of Rectum, Open Approach (ICD-10-PCS; principal; 2018-04-23)
PROC: 0D1B0Z4 Bypass Ileum to Cutaneous, Open Approach (ICD-10-PCS; principal; 2018-04-23)
PROC: 0DNN0ZZ Release Sigmoid Colon, Open Approach (ICD-10-PCS; principal; 2018-04-23)
PROC: 3E0T3BZ Introduction of Anesthetic Agent into Peripheral Nerves and Plexi, Percutaneous Approach (ICD-10-PCS; 2018-04-23)
PROC: 02HV33Z Insertion of Infusion Device into Superior Vena Cava, Percutaneous Approach (ICD-10-PCS; 2018-05-01)
PROC: 0DH67UZ Insertion of Feeding Device into Stomach, Via Natural or Artificial Opening (ICD-10-PCS; 2018-05-01)
PROC: 3E0G76Z Introduction of Nutritional Substance into Upper GI, Via Natural or Artificial Opening (ICD-10-PCS; 2018-05-01)
DX: C19 Malignant neoplasm of rectosigmoid junction (principal); K91.30 Postprocedural intestinal obstruction, unspecified as to partial versus complete; Z85.118 Personal history of other malignant neoplasm of bronchus and lung; Z90.2 Acquired absence of lung [part of]; K94.10 Enterostomy complication, unspecified; Y83.2 Surgical operation with anastomosis, bypass or graft as the cause of abnormal reaction of the patient, or of later complication, without mention of misadventure at the time of the procedure; Y92.239 Unspecified place in hospital as the place of occurrence of the external cause; Z92.21 Personal history of antineoplastic chemotherapy; E66.9 Obesity, unspecified; Z68.33 Body mass index [BMI] 33.0-33.9, adult; Z90.49 Acquired absence of other specified parts of digestive tract
CPT/HCPCS: 2NAP; 36415; 36592; 71045; 74021; 74022; 74176; 82436; 87086; 88304; 88309; C1769; J0131; J0690; J1200; J1644; J2405; J2765; J3490; J7042; J7120